=== PATIENT | male | born 1960 ===

== ENCOUNTER 2018-10-19 14:17 | Outpatient (CLI) | payer OTHER ==
[~2018-10-19] VITALS: Ht 170.2 cm; Wt 66.2 kg
== END 2018-10-19 14:35 | disposition home or self-care (01) ==
LOC: OFIC 805 14:17
DX: J03.80 Acute tonsillitis due to other specified organisms (principal); E04.1 Nontoxic single thyroid nodule; G47.33 Obstructive sleep apnea (adult) (pediatric)